=== PATIENT | male | born 1980 | race Caucasian/White ===

== ENCOUNTER 2016-10-14 17:16 | Emergency (ER) | payer BC ==
[~2016-10-14] VITALS: Ht 172.7 cm; Wt 70.9 kg
[2016-10-14 17:22] VITALS: TEMP 98.2
[2016-10-14 18:08] LABS: BASO # 0.2 (0.0-0.2); EOS # 0.2 (0.0-0.7); EOS % 2.9 % (0-4.0); GRAN # 5.3 (1.4-6.5); HEMATOCRIT 43.9 % (42.0-52.0); HEMOGLOBIN 15.3 g/dl (13.5-18.0); LYMPH # 1.1 (1.2-3.4); LYMPH % 14.7 % (20.0-51.0); MEAN CELL VOLUME 87 fl (80.0-100.0); MEAN CORPUSCULAR HEMOGLOBIN 30 pg (27.0-31.0); MEAN CORPUSCULAR HGB CONC 35 g/dl (33.0-37.0); MEAN PLATELET VOLUME 8.5 fl (7.4-10.4); MONO # 0.9 (0.1-0.6); MONO % 11.1 % (1.7-9.3); PLATELET COUNT 258 K/mm3 (130-400); RED BLOOD COUNT 5.07 M/mm3 (4.20-5.60); REDCELL DISTRIBUTION WIDTH-CV 12.9 % (11.5-14.5); WHITE BLOOD COUNT 7.7 K/mm3 (4.8-10.8)
[2016-10-14 18:20] LABS: ADJUSTED CALCIUM 9.4 mg/dL (8.4-10.2); ALANINE AMINOTRANSFERASE 41 U/L (21-72); ALBUMIN 4.1 gm/dL (3.5-5.0); ALKALINE PHOSPHATASE 101 U/L (50-136); ANION GAP 11 mmol/L (7-16); BILIRUBIN,TOTAL 0.8 mg/dL (0.0-1.0); BLOOD UREA NITROGEN 15 mg/dL (9-20); CALCIUM 9.5 mg/dL (8.4-10.2); CARBON DIOXIDE 24 mmol/L (22-30); CHLORIDE 104 mmol/L (98-107); CREATININE, serum 0.88 mg/dL (0.66-1.25); GLUCOSE 95 mg/dL (74-106); POTASSIUM 3.6 mmol/L (3.4-5.0); SODIUM 139 mmol/L (137-145)
[2016-10-14 18:21] LABS: C-REACTIVE PROTEIN < 0.5 mg/dL (0.0-0.9)
[2016-10-14 18:30] LABS: INR 0.9 (0.8-3.0); PROTHROMBIN TIME 10.3 SECONDS (9.7-12.8)
[2016-10-14 18:32] LABS: TROPONIN-I < 0.012 ng/mL (0.000-0.034)
[2016-10-14 18:33] LABS: PARTIAL THROMBOPLASTIN TIME 29.6 SECONDS (26.0-37.0)
[2016-10-14] MEDS ORDERED: PEPCID 20MG TAB20 MG PO (20:21)
[2016-10-14 20:35] VITALS: BP 137/80; PULSE 64
== END 2016-10-14 20:36 | disposition home or self-care (01) ==
LOC: COL.ER 17:16
PROVIDERS: Emergency Medicine
DX: R07.89 Other chest pain (principal); K21.9 Gastro-esophageal reflux disease without esophagitis
CPT/HCPCS: J1885; J2765; J3010; J7030

== ENCOUNTER 2021-07-26 08:06 | Emergency (ER) | payer BC ==
[~2021-07-26] VITALS: Ht 170.2 cm; Wt 77.3 kg
[~2021-07-26 08:06] MED LIST: PEPCID 20MG TAB20 MG PO
[2021-07-26 08:21] VITALS: TEMP 98
[2021-07-26] MEDS ORDERED: HYZAAR 12.5 MG-1 TAB PO (08:26)
[2021-07-26] MEDS ORDERED: LIPITOR 40MG TA40 MG PO (08:26)
[2021-07-26] MEDS ORDERED: PEPCID 20MG TAB20 MG PO (08:37)
[2021-07-26 09:53] VITALS: BP 147/81; PULSE 69
[2021-07-26] MEDS ORDERED: omeprazole DR PO (19:59)
== END 2021-07-26 09:56 | disposition home or self-care (01) ==
LOC: COL.ER 08:06
DX: T18.198A Other foreign object in esophagus causing other injury, initial encounter (principal); I10 Essential (primary) hypertension; E78.5 Hyperlipidemia, unspecified; Z79.899 Other long term (current) drug therapy

== ENCOUNTER 2021-07-26 15:15 | Emergency (ER) | payer BC ==
[~2021-07-26] VITALS: Ht 170.2 cm; Wt 77.3 kg
[~2021-07-26 15:15] MED LIST changes: +HYZAAR 12.5 MG-1 TAB PO; +LIPITOR 40MG TA40 MG PO
[2021-07-26 15:50] LABS: HEMATOCRIT 42.3 % (42.0-52.0); MEAN CELL VOLUME 83 fl (80.0-100.0); MEAN CORPUSCULAR HEMOGLOBIN 30 pg (27-31); MEAN CORPUSCULAR HGB CONC 36 g/dl (33.0-37.0); MEAN PLATELET VOLUME 8.7 fl (7.4-10.4); PLATELET COUNT 314 K/mm3 (130-400); RED BLOOD COUNT 5.08 M/mm3 (4.20-5.60); REDCELL DISTRIBUTION WIDTH-CV 12.3 % (11.5-14.5)
[2021-07-26 16:09] LABS: ALANINE AMINOTRANSFERASE 21 U/L (0-55); ALBUMIN 4.5 gm/dL (3.5-5.0); ALKALINE PHOSPHATASE 100 U/L (40-150); ANION GAP 15 mmol/L (7-16); AST,SGOT 28 U/L (5-34); BILIRUBIN,TOTAL 1.2 mg/dL (0.2-1.2); BLOOD UREA NITROGEN 12 mg/dL (9-21); CALCIUM 9.2 mg/dL (8.4-10.2); CARBON DIOXIDE 19 mmol/L (22-29); CHLORIDE 100 mmol/L (98-107); CREATININE, serum 0.95 mg/dL (0.72-1.25); GLUCOSE 114 mg/dL (70-99); POTASSIUM 3.7 mmol/L (3.5-4.5); SODIUM 134 mmol/L (136-145); TOTAL PROTEIN 7.5 gm/dL (6.2-8.1)
[2021-07-26 16:16] LABS: TROPONIN-I < 0.010 ng/mL (0.00-0.033)
[2021-07-26 16:26] LABS: LYMPHOCYTE 3 % (20.0-51.0); NEUTROPHILS 94 % (42.0-75.2); PLATELET ESTIMATE NORMAL (NORMAL)
[2021-07-26 19:35] VITALS: BP 130/74; PULSE 92; TEMP 98.4
[2021-07-26] MEDS ORDERED: omeprazole DR PO (19:59)
--- NOTE | 2021-07-26 20:41 | NUR ---
Pt to express after egd. report was received from Jaqui HUGGINS at about 1940. Pt is awake and alert, pwd with reg and unlabored respirations. PT still has some discomfort to upper/mid chest r/t esophagitis, but states is tolerable. Dr. Gallo was in to see pt and discussed his egd and poc. Pt verbalized understanding of plan. written dc/fu instrcutions were given, as well as written RX for omeprazole from DR. Brooks in ER. Pt was given 3 10 ml doses of magic mouthwash per Dr. Gallo and pt took a dose prior to his departure, stated it gave minimal relief to discomfort in chest...pt is ambulatory in room with steady gait. IV dc'd wtih cath intact, dressing applied. I ambulated with pt to ER entrance, waited with him till ride arrived.pt denies any questions or concerns at time of departure.
== END 2021-07-26 18:21 | disposition home or self-care (01) ==
LOC: COL.ER 15:15
PROVIDERS: Family Medicine
DX: R10.13 Epigastric pain (principal); R07.9 Chest pain, unspecified; K92.0 Hematemesis; I10 Essential (primary) hypertension; F17.220 Nicotine dependence, chewing tobacco, uncomplicated; Z79.899 Other long term (current) drug therapy
CPT/HCPCS: C9113; J2704; J3010; Q9967

== ENCOUNTER 2021-09-01 10:43 | Day surgery (SDC) | payer BC ==
[~2021-09-01] VITALS: Ht 170.2 cm; Wt 69.0 kg
[~2021-09-01 10:43] MED LIST changes: +omeprazole DR PO
[2021-09-01 11:51] VITALS: BP 140/93; PULSE 64; TEMP 97.3
[2021-09-01 13:50] VITALS: BP 140/93; PULSE 81
--- NOTE | 2021-09-01 13:50 | NUR ---
Patient returns to bay [address] per cart and transfers from cart to recliner with one person assist. Temp 97.6. Drinking water. IV fluids infusing. Call light in reach.
[2021-09-01 14:05] VITALS: BP 156/94; PULSE 83
--- NOTE | 2021-09-01 14:05 | NUR ---
Dr. Gallo in the room and is talking with patient and mother. All questions answered.
[2021-09-01 14:20] VITALS: BP 156/94; PULSE 83
--- NOTE | 2021-09-01 14:20 | NUR ---
Tolerated water. Room air sats 96%.
--- NOTE | 2021-09-01 14:26 | NUR ---
Patient dismissed to home driven by parents. Taken to the front door per wheelchair and assisted into vehicle with instructions in hand. Patient voiced understanding of home cares and follow up EGD and medications.
== END 2021-09-01 14:26 | disposition home or self-care (01) ==
LOC: SDCO 10:43
DX: K22.2 Esophageal obstruction (principal); L85.9 Epidermal thickening, unspecified; I10 Essential (primary) hypertension; E78.5 Hyperlipidemia, unspecified; Z79.899 Other long term (current) drug therapy
CPT/HCPCS: C1726; J2704; J3010; J7120

== ENCOUNTER 2021-09-29 10:40 | Day surgery (SDC) | payer BC ==
[~2021-09-29] VITALS: Ht 170.2 cm; Wt 78.0 kg
[2021-09-29] MEDS ORDERED: PRIL40 PO (11:12)
[2021-09-29] MEDS ORDERED: DIPHENHYDRAMINE 12.5 MG/5 ML (11:14)
[2021-09-29 11:34] VITALS: BP 137/71; PULSE 64; TEMP 97.6
[2021-09-29 12:45] VITALS: BP 107/69; PULSE 75; TEMP 97.6
--- NOTE | 2021-09-29 12:45 | NUR ---
The patient arrived from the endo suite, drowsy but oriented. He was able to ambulate from the cart to the chair. Vitals obtained. Verbal report obtained. The patient requested ice water and a muffin to eat. Per report the patient is to be on a soft diet until tomorrow. Call jay is within reach. Warm blankets provided.
[2021-09-29 13:00] VITALS: BP 118/76; PULSE 71
--- NOTE | 2021-09-29 13:00 | NUR ---
The DR is in to speak with the patient and his mother.
--- NOTE | 2021-09-29 13:05 | NUR ---
Vitals obtained. The patient denies nausea. No vomting. He is tolerating his muffin and water well. Call jay remains within reach.
[2021-09-29 13:15] VITALS: BP 127/97; PULSE 65
--- NOTE | 2021-09-29 13:15 | NUR ---
Vitals obtained. The patient expressed desire to be discharged.
--- NOTE | 2021-09-29 13:30 | NUR ---
IV discontinued. Catheter tip intact. Pressure dressing applied. No redness or swelling noted. DC instructions and educational material was reviewed with the patient and his Mother. Both verbalized understanding and the patient signed the related paperwork. The PT denied needing assistance changing into his personal clothes. Call jay remains within reach.
--- NOTE | 2021-09-29 13:45 | NUR ---
The patient was escorted out via wheelchair to the patient entrence by BHAVNA Youssef. PT has his DC packet and personal belongings and was transferred in the care of his parents. Dad is driving.
== END 2021-09-29 13:45 | disposition home or self-care (01) ==
LOC: SDCO 10:40
DX: K22.2 Esophageal obstruction (principal); R13.10 Dysphagia, unspecified
CPT/HCPCS: C1726; J2704; J7120